=== PATIENT | female | born 1995 | race Two or more races ===

== ENCOUNTER 2024-07-09 17:33 | Emergency (ER) | payer MEDICAID, SELFPAY ==
[2024-07-09 17:34] VITALS: BMI 21.2
[2024-07-09 17:56] VITALS: BP 124/76; PULSE 78; RESP 18; TEMP 36.9; O2SAT 100
--- NOTE | 2024-07-09 18:06 | XR_ITS ---
Examination: Complete OB ultrasound, less than 14 weeks, transabdominal Date and time of exam: July 09, 2024 1834 hrs. Indications: Onset of pelvic pain and vaginal bleeding beginning today Technique: Obstetrical ultrasound images less than 14 weeks performed via transabdominal imaging Findings: A normal shaped single intrauterine gestation is present in the uterus. pole 0.9 cm corresponds to 6 week 6 day gestational age Cardiac motion 138 BPM Ultrasonographic survey of visible and placental structures unremarkable. Amniotic fluid volume appears appropriate for this estimated gestational age. Right ovary 2.7 x 1.0 x 1.6 cm arterial flow Left ovary obscured by bowel gas Impression: Viable intrauterine gestation 6 weeks 6 days No subchorionic hemorrhage.
--- NOTE | 2024-07-09 18:06 | EDNOTE_ITS ---
<Statement entered by Juliet Martins MD - 07/19/24 11:49> As co-signing physician, I was present and available for consult prn. I concur with the plan and care as documented by the midlevel provider. ED Female Urogenital RME/HPI General Chief complaint: Urogenital-Female Stated complaint: VAG BLEEDING/ABD PAIN AND + PREG Time Seen by Provider: 07/09/24 18:02 Source: patient Arrival date/time: 07/09/24 17:33 29-year-old female 4 para 3 approximately 7 weeks presents emergency department complaining of vaginal bleeding that started this morning. Patient denies any fever, chills, n/v, or any other associated symptoms. Mode of arrival: ambulatory Limitations: no limitations Related Data Allergies Allergy/AdvReac Type Severity Reaction Status Date / Time No Known Allergies Allergy Verified 07/09/24 17:37 Review of Systems Review of Systems Systems Reviewed: All systems reviewed, normal except as documented Constitutional Constitutional: Reports system reviewed and no additional complaints, except as documented, Denies body ache(s), Denies chills and Denies fever(s) Eyes Eyes: Reports system reviewed and no additional complaints, except as documented and Denies change in vision ENT Ears, Nose, Mouth, and Throat: Reports system reviewed and no additional complaints, except as documented, Denies disequilibrium, Denies dizziness, Denies sore throat and Denies vertigo Cardiovascular Cardiovascular: Reports system reviewed and no additional complaints, except as documented, Denies chest pain and Denies dyspnea Respiratory Respiratory: Reports system reviewed and no additional complaints, except as documented, Denies chest congestion, Denies cough and Denies dyspnea Gastrointestinal Gastrointestinal: Reports system reviewed and no additional complaints, except as documented, Denies abdominal pain, Denies nausea and Denies vomiting Genitourinary Genitourinary: Reports abnormal vaginal bleeding Musculoskeletal Musculoskeletal: Reports system reviewed and no additional complaints, except as documented, Denies abnormal gait and Denies arthralgias Integumentary/Breasts Skin/Breast: Reports system reviewed and no additional complaints, except as documented, Denies erythema, Denies rash and Denies wounds Neurologic Neurologic: Reports system reviewed and no additional complaints, except as documented, Denies abnormal gait, Denies disequilibrium, Denies dizziness and Denies vertigo Past Medical History Past Medical History CARDIAC: Negative Congestive Heart Failure RESPIRATORY: Negative Chronic Obstructive Pulmonary Disease (COPD) GENITOURINARY: Negative Renal Disease ENDOCRINE: Negative Diabetes Mellitus Type 1 or Diabetes Mellitus Type 2 Social History SMOKING STATUS: Never smoker ED Exam General Limitations: Present no limitations General appearance: Present alert and in no apparent distress Head Head exam: Present atraumatic Eye Eye exam: Present normal appearance, PERRL and EOMI ENT ENT exam: Present normal exam, normal oropharynx and mucous membranes moist Neck Neck exam: Present normal inspection, full ROM and trachea midline Chest Chest inspection: Present normal inspection and symmetric chest wall rise Respiratory Respiratory exam: Present normal lung sounds bilaterally Cardiovascular Cardiovascular exam: Present regular rate, normal rhythm and normal heart sounds Abdominal Exam Abdominal exam: Present soft and normal bowel sounds Extremities Exam Extremities exam: Present normal inspection and full ROM Back Exam Back exam: Present normal inspection and full ROM Neurological Exam Neurological exam: Present alert, oriented X3 and CN II-XII intact Psychiatric Psychiatric exam: Present normal affect and normal mood Skin Skin exam: Present warm, dry, intact and normal color Course Quality Measures none Orders Category Date Time Status Administer Rhogam X1 Care 07/09/24 20:40 Completed US OB <= 14 weeks fetus Stat Exams 07/09/24 18:06 Completed Antibody Identification Stat Lab 07/09/24 18:15 Completed Beta HCG,Quantitative Stat Lab 07/09/24 18:15 Completed CBC Stat Lab 07/09/24 18:15 Completed CMP [Comprehensive Metabolic Panel] Stat Lab 07/09/24 18:15 Completed RHOGAM [Rho(D) Immune Globulin] Stat Lab 07/09/24 18:15 Completed Type and Screen Stat Lab 07/09/24 18:15 Completed Urinalysis, C/S if Indicated Stat Lab 07/09/24 18:25 Completed Vital Signs Vital signs: Vital Signs Temperature 98.5 F 07/09/24 17:56 Pulse Rate 78 07/09/24 17:56 Respiratory Rate 18 07/09/24 17:56 Blood Pressure 124/76 07/09/24 17:56 Pulse Oximetry (%) 100 07/09/24 17:56 Oxygen Delivery Method Room Air 07/09/24 17:56 100% RA WNL. Urogenital - Female MDM Narrative MDM Narrative:: 29-year-old female 4 para 3 approximately 7 weeks presents emergency department complaining of vaginal bleeding that started this morning. Patient denies any fever, chills, n/v, or any other associated symptoms. CBC stable hgb 11.2 no leukocytosis. CMP unremarkable. u/a unremarkable. Beta Hcg 115, 203. US findings viable intrauterine gestation 6 weeks and 6 days. Patient blood type A negative. Dr. Martínez consulted recommends Rhogam and f/u in hes office following day. Instructions given to patient for follow up with Dr. Martínez. Patient data External records reviewed:: None Clinical information provided by:: patient and family Social determinants that could affect healthcare access:: none Patient has the following chronic illnesses:: none How is presenting disease/condition affected by chronic disease/condition?: uneffected by Evaluation data The following diagnostics were reviewed and interpreted by me:: lab results and radiology exam(s) Lab and/or radiology exams considered but not ordered:: ordered Interpretation Summary: interpreted by me Medications / Prescriptions Medications or Prescriptions considered but not ordered:: n/a Medication administrations:: n/a Consultations Consultation(s) initiated? (list below): Yes Consultation #1 (Physician, Specialty, Details): Dr. Martínez Diagnosis Urogenital Female Differential Diagnosis: other (threatened ) Most likely diagnosis given after review of the tests above:: vaginal bleeding affecting early Admission Indicated Admission indicated?: not indicated Admission Request Was there a request for admission?: No Disposition Plan Disposition Plan: Discharge Discharge Attestation Discharge Attestation: The patient and all family members were given an opportunity to ask questions and understood the discharge instructions. Discharge instructions specifically effects, indications for sooner follow up or return to the emergency department, and the expected course of current diagnosis. Patient condition: Stable Discharge Plan Plan Patient Disposition: HOME (Self Care) Disposition Comment: Stable Prescriptions/Referrals Referrals: Evans Greene MD [Primary Care Provider] - In 1 week Slick Martínez MD [Physician] - 07/10/24 9:00 am Problem List Clinical Impression: Vaginal bleeding affecting early Patient/Caregiver Discharge Instructions Discharge Activity: activity as tolerated Education Materials: Bleeding During Early Additional Instructions: Follow-up with Dr. Martínez and his office on Wednesday. Return to emergency department for any worsening symptoms or as needed. Print Language: Ukrainian Stand Alone Forms: Rama Award Info., Patient Portal Info Letter PA/TECHNICAL SUPPORT CONSULTANT Supervising Physician PA/LUÍS Supervising Physician: Dr. Martins
[2024-07-09 18:22] LABS: Basophils # (Auto) 0.1 Thou/mm3 (0.0-0.2); Basophils % (Auto) 2 % (0-2.5); Eosinophils # (Auto) 0.2 Thou/mm3 (0.0-0.5); Eosinophils % (Auto) 3 % (0-10); Hemoglobin 11.2 g/dL (12.0-16.0); Immature Granulocytes % (Auto) 0 % (0-0); Immature Granulocytes Auto 0.01 Thou/mm3 (0.00-0.00); Lymphocytes # (Auto) 2.3 Thou/mm3 (1.0-4.8); Lymphocytes % (Auto) 45 % (10-50); Mean Corpuscular HGB Conc 32.9 g/dl (31.0-37.0); Mean Corpuscular Volume 79 fL (80-100); Monocytes # (Auto) 0.4 Thou/mm3 (0.0-0.8); Monocytes % (Auto) 8 % (0-12); Neutrophils # (Auto) 2.2 Thou/mm3 (1.8-7.7); Neutrophils % (Auto) 43 % (37-80); Nucleated Red Blood Cell % 0 /100 WBC (0); Platelet Count 222 Thou/mm3 (140-440); Red Blood Count 4.31 Miln/mm3 (4.00-5.20); White Blood Count 5.2 Thou/mm3 (3.6-11.0)
[2024-07-09 18:52] LABS: Collection Type, Urine Clean Catch; RBC,Urine 0 /hpf (0-3)
[2024-07-09 18:56] LABS: Alanine Aminotransferase 21 U/L (10-49); Albumin, Serum 4.7 gm/dL (3.5-5.0); Albumin/Globulin Ratio 1.8 (1.2-2.2); Alkaline Phosphatase 60 U/L (46-116); Anion Gap 8 (7-16); Aspartate Amino Transferase 14 U/L (0-34); BUN/Creatinine Ratio 17 Ratio (12-20); Bilirubin,Total 0.4 mg/dL (0.3-1.2); Blood Urea Nitrogen 10 mg/dL (9-23); Calcium 9.7 mg/dL (8.3-10.6); Calcium (Corrected) 9.7 mg/dL (8.5-10.1); Carbon Dioxide 25.3 mMol/L (20.0-31.0); Chloride 102 mMol/L (98-107); Creatinine (Component) 0.6 mg/dL (0.6-1.3); Estimated Creatinine Clearance 112.4 mL/min (>60); Globulin 2.6 gm/dL (2.3-3.5); Glucose 109 mg/dL (74-106); Osmolality,Calculated 270 (275-295); Potassium 3.3 mMol/L (3.4-5.1); Sodium 135 mMol/L (136-145); Total Protein 7.3 gm/dL (5.7-8.2); eGFR > 60 See Note
[2024-07-09 19:00] LABS: Bilirubin,Urine Negative (Negative); Blood,Urine Negative (Negative); Clarity,Urine Turbid (Clear/Hazy); Color,Urine Yellow (Lt Yel-Yel); Culture Indicated,Urine Not Indicated; Glucose, Urine Negative (Negative); Ketones,Urine Trace (Negative); Leukocyte Esterase,Urine Positive (Negative); Nitrite,Urine Negative (Negative); PH,Urine 5.5 (5.0-7.0); Protein,Urine Trace (Neg - Trace); Specific Gravity,Urine 1.037 (1.001-1.035); Squamous Epithelial Cell,Urine 3 /hpf (0-5); WBC,Urine 5 /hpf (0-5)
[2024-07-09 19:45] LABS: Beta HCG,Quantitative 115203 mIU/mL (<5.0)
[2024-07-09 23:17] VITALS: BP 122/64; PULSE 79; RESP 20; TEMP 36.9; O2SAT 100
[2024-07-09 23:27] VITALS: BP 128/78; PULSE 83; RESP 20; TEMP 36.8; O2SAT 100
== END 2024-07-09 23:34 | disposition home or self-care (01) ==
PROVIDERS: Emergency Provider Emergency Medicine; PCP Family Medicine
DX: O20.9 Hemorrhage in early pregnancy, unspecified (principal); Z3A.01 Less than 8 weeks gestation of pregnancy
CPT/HCPCS: 36415; 76801; 80053; 81001; 84702; 85025; 86850; 86870; 86900; 86901; 99284; J2790

== ENCOUNTER 2024-07-10 21:55 | Emergency (ER) | payer MEDICAID, SELFPAY ==
[2024-07-10 21:55] VITALS: BMI 20.8
[2024-07-10 22:21] VITALS: BP 132/72; PULSE 80; RESP 16; TEMP 37; O2SAT 100
--- NOTE | 2024-07-10 22:37 | EDNOTE_ITS ---
ED OB Contraction Preg RMI/HPI General Chief complaint: OB/Uterine Contractions Stated complaint: 7WKS PREG VAG BLEEDING Time Seen by Provider: 07/10/24 22:13 Arrival date/time: 07/10/24 21:55 29 y.o female at 6 weeks and 6 days gestation reports with complaints of persistent bleeding. Patient's ultrasound performed yesterday indicated viable 6-week 6-day intrauterine . Patient became concerned today because she is spotting light pink blood noted today. She denies any back pain any fever ch ills nausea or vomiting, dysuria, urinary urgency, or frequency or pelvic pain. Limitations: no limitations Related Data Allergies Allergy/AdvReac Type Severity Reaction Status Date / Time No Known Allergies Allergy Verified 07/09/24 17:37 Review of Systems Constitutional Constitutional: Denies chills, Denies fever(s) and Denies headache(s) ENT Ears, Nose, Mouth, and Throat: Denies headache(s) and Denies vertigo Gastrointestinal Gastrointestinal: Denies nausea and Denies vomiting Genitourinary Genitourinary: Reports abnormal vaginal bleeding, Denies dysuria, Denies pelvic pain, Denies urinary hesitancy and Denies urinary urgency Musculoskeletal Musculoskeletal: Denies back pain and Denies myalgias Integumentary/Breasts Skin/Breast: Denies rash and Denies skin pain Neurologic Neurologic: Denies headache(s) and Denies vertigo Hematologic/Lymphatic Hematologic/Lymphatic: Denies easy bleeding and Denies easy bruising Past Medical History Social History SMOKING STATUS: Never smoker ED Exam General Limitations: Present no limitations General appearance: Present alert and in no apparent distress Abdominal Exam Abdominal exam: Present soft and normal bowel sounds Extremities Exam Extremities exam: Present normal inspection and full ROM Back Exam Back exam: Present normal inspection and full ROM Neurological Exam Neurological exam: Present alert, oriented X3 and CN II-XII intact Psychiatric Psychiatric exam: Present normal affect and normal mood Skin Skin exam: Present warm, dry, intact and normal color Course Course Course Narrative: Beta-hCG of 121,016 Quality Measures none Orders Category Date Time Status Beta HCG,Quantitative Stat Lab 07/10/24 23:03 Completed Vital Signs Vital signs: Vital Signs Temperature 98.6 F 07/10/24 22:21 Pulse Rate 80 07/10/24 22:21 Respiratory Rate 16 07/10/24 22:21 Blood Pressure 132/72 H 07/10/24 22:21 Pulse Oximetry (%) 100 07/10/24 22:21 Oxygen Delivery Method Room Air 07/10/24 22:21 OB/Uterine Contractions Patient data External records reviewed:: None Clinical information provided by:: patient and family Social determinants that could affect healthcare access:: none Patient has the following chronic illnesses:: none How is presenting disease/condition affected by chronic disease/condition?: no chronic disease Evaluation data The following diagnostics were reviewed and interpreted by me:: lab results Lab and/or radiology exams considered but not ordered:: none Interpretation Summary: Beta-hCG increasing Medications / Prescriptions Medications or Prescriptions considered but not ordered:: none Medication administrations:: none Consultations Consultation(s) initiated? (list below): No Diagnosis OB Contractions Differential Diagnosis: other (Threatened versus implantation of bleeding) Most likely diagnosis given after review of the tests above:: Vaginal bleeding during early Admission Indicated Explain why admission is indicated or not indicated:: mild condition Admission Request Was there a request for admission?: No Disposition Plan Disposition Plan: Discharge Discharge Attestation Discharge Attestation: The patient and all family members were given an opportunity to ask questions and understood the discharge instructions. Discharge instructions specifically effects, indications for sooner follow up or return to the emergency department, and the expected course of current diagnosis. Patient condition: Stable Discharge Plan Plan Patient Disposition: HOME (Self Care) Prescriptions/Referrals Referrals: Temporary Provider,ED [Physician] - In 1 week Problem List Clinical Impression: Vaginal bleeding during Patient/Caregiver Discharge Instructions Discharge Activity: activity as tolerated Education Materials: Bleeding During Early Additional Instructions: Your lab test show an increase in your numbers which is a good thing t he bleeding is probably due to implantation of bleeding you should follow-up with your [facility] [employer] in the morning. Beta HCG is 121,016. Uterine ultrasound done on 07/09/2024 indicated viable intrauterine gestation of 6 weeks and 6 days Print Language: Sami Stand Alone Forms: Rama Award Info., Patient Portal Info Letter
[2024-07-11 00:22] LABS: Beta HCG,Quantitative 121016 mIU/mL (<5.0)
[2024-07-11 00:36] VITALS: BP 122/76; PULSE 76; RESP 18; TEMP 36.7; O2SAT 99
== END 2024-07-11 00:37 | disposition home or self-care (01) ==
PROVIDERS: Physician Assistant; Emergency Provider Emergency Medicine
DX: O20.9 Hemorrhage in early pregnancy, unspecified (principal); Z3A.01 Less than 8 weeks gestation of pregnancy
CPT/HCPCS: 36415; 84702; 99283

== ENCOUNTER 2024-09-04 17:48 | Emergency (ER) | payer MEDICAID, SELFPAY ==
[2024-09-04 17:55] VITALS: BMI 19.8
[2024-09-04 18:24] VITALS: BP 118/78; PULSE 88; RESP 18; TEMP 37.3; O2SAT 99
--- NOTE | 2024-09-04 18:37 | XR_ITS ---
Examination: Complete OB ultrasound greater than 14 weeks Date and time of exam: September 12, 2024 1929 hrs. Indications: Abdominal pelvic pain onset today Findings: Viable intrauterine single fetus with single amniotic sac presentation breech Cardiac motion 152 BPM Placenta posterior fundal grade 1 Umbilical cord insertion seen Amniotic fluid adequate spine maternal left Cervix 3.0 cm Right ovary 3.1 cm arterial flow Left ovary obscured by the bowel gas Composite estimated gestational age based on BPD, head circumference, abdominal circumference, femur length is 16 weeks 0 days Estimated weight 143 g. Survey of intracranial anatomy, spinal anatomy, abdominal anatomy, four-chamber heart performed with no abnormalities identified. Impression: Viable intrauterine gestation breech presentation.
--- NOTE | 2024-09-04 18:40 | EDRME_ITS ---
Rapid Medical Screening Exam RME Arrival date/time: 09/04/24 17:48 29-year-old female approximately 19 weeks G4, presents emergency department complaining of abdominal fullness and pain with no vaginal bleeding that started earlier today. Patient reports sees Dr. Martínez [employer] and was instructed to go to the ER for just an ultrasound. Chief Complaint: Urogenital-Female Time Seen by Provider: 09/04/24 18:19 Vital signs: Vital Signs Temperature 99.2 F 09/04/24 18:24 Pulse Rate 88 09/04/24 18:24 Respiratory Rate 18 09/04/24 18:24 Blood Pressure 118/78 09/04/24 18:24 Pulse Oximetry (%) 99 09/04/24 18:24 Oxygen Delivery Method Room Air 09/04/24 18:24 Vital signs reviewed by provider: Yes
[2024-09-04 19:04] LABS: Collection Type, Urine Clean Catch
[2024-09-04 19:46] LABS: Bacteria,Urine Rare; Bilirubin,Urine Negative (Negative); Blood,Urine Negative (Negative); Clarity,Urine Clear (Clear/Hazy); Color,Urine Lt-Yellow (Lt Yel-Yel); Culture Indicated,Urine Not Indicated; Glucose, Urine Negative (Negative); Ketones,Urine Negative (Negative); Leukocyte Esterase,Urine Positive (Negative); Nitrite,Urine Negative (Negative); PH,Urine 6.5 (5.0-7.0); Protein,Urine Trace (Neg - Trace); RBC,Urine 2 /hpf (0-3); Specific Gravity,Urine 1.027 (1.001-1.035); Squamous Epithelial Cell,Urine 5 /hpf (0-5); Urobilinogen,Urine Negative mg/dL (0.0-1.0); WBC,Urine 2 /hpf (0-5)
--- NOTE | 2024-09-04 21:21 | EDNOTE_ITS ---
ED Abdominal Pain RME/HPI General Chief Complaint: Urogenital-Female Stated complaint: ABD PAIN/STOMCAH HARD SINCE 1600, 19 WKS 5 DAYS Time seen by provider: 09/04/24 18:19 Arrival date/time: 09/04/24 17:48 29-year-old female approximately 19 weeks G4, presents emergency department complaining of abdominal fullness and pain with no vaginal bleeding that started earlier today. Patient reports sees Dr. Martínez [employer] TENDER and was instructed to go to the ER for just an ultrasound. Patient denies any fever, chills, vaginal bleeding, or any other associated symptom. Source: patient Mode of arrival: ambulatory Limitations: no limitations RME / HPI RME / HPI narrative: 09/04/24 17:48 29-year-old female approximately 19 weeks G4, presents emergency department complaining of abdominal fullness and pain with no vaginal bleeding that started earlier today. Patient reports sees Dr. Martínez WE[employer] TENDER and was instructed to go to the ER for just an ultrasound. Related Data Allergies Allergy/AdvReac Type Severity Reaction Status Date / Time No Known Allergies Allergy Verified 09/04/24 17:52 Review of Systems Review of Systems Systems Reviewed: All systems reviewed, normal except as documented Constitutional Constitutional: Reports system reviewed and no additional complaints, except as documented, Denies body ache(s), Denies chills and Denies fever(s) Eyes Eyes: Reports system reviewed and no additional complaints, except as documented and Denies change in vision ENT Ears, Nose, Mouth, and Throat: Reports system reviewed and no additional complaints, except as documented, Denies disequilibrium, Denies dizziness, Denies sore throat and Denies vertigo Cardiovascular Cardiovascular: Reports system reviewed and no additional complaints, except as documented, Denies chest pain and Denies dyspnea Respiratory Respiratory: Reports system reviewed and no additional complaints, except as documented, Denies chest congestion, Denies cough and Denies dyspnea Gastrointestinal Gastrointestinal: Reports system reviewed and no additional complaints, except as documented, Reports abdominal pain, Denies nausea and Denies vomiting Musculoskeletal Musculoskeletal: Reports system reviewed and no additional complaints, except as documented, Denies abnormal gait and Denies arthralgias Integumentary/Breasts Skin/Breast: Reports system reviewed and no additional complaints, except as documented, Denies erythema, Denies rash and Denies wounds Neurologic Neurologic: Reports system reviewed and no additional complaints, except as documented, Denies abnormal gait, Denies disequilibrium, Denies dizziness and Denies vertigo Past Medical History Past Medical History CARDIAC: Negative Congestive Heart Failure RESPIRATORY: Negative Chronic Obstructive Pulmonary Disease (COPD) GENITOURINARY: Negative Renal Disease ENDOCRINE: Negative Diabetes Mellitus Type 1 or Diabetes Mellitus Type 2 Social History SMOKING STATUS: Never smoker ED Exam General Limitations: Present no limitations General appearance: Present alert and in no apparent distress Head Head exam: Present atraumatic Eye Eye exam: Present normal appearance, PERRL and EOMI ENT ENT exam: Present normal exam, normal oropharynx and mucous membranes moist Neck Neck exam: Present normal inspection, full ROM and trachea midline Chest Chest inspection: Present normal inspection and symmetric chest wall rise Respiratory Respiratory exam: Present normal lung sounds bilaterally Cardiovascular Cardiovascular exam: Present regular rate, normal rhythm and normal heart sounds Abdominal Exam Abdominal exam: Present soft and normal bowel sounds Extremities Exam Extremities exam: Present normal inspection and full ROM Back Exam Back exam: Present normal inspection and full ROM Neurological Exam Neurological exam: Present alert, oriented X3 and CN II-XII intact Psychiatric Psychiatric exam: Present normal affect and normal mood Skin Skin exam: Present warm, dry, intact and normal color Course Quality Measures none Orders Category Date Time Status US OB >= 14 weeks Fetus Stat Exams 09/04/24 18:37 Completed Urinalysis, C/S if Indicated Stat Lab 09/04/24 18:53 Completed Vital Signs Vital signs: Vital Signs Temperature 99.2 F 09/04/24 18:24 Pulse Rate 88 09/04/24 18:24 Respiratory Rate 18 09/04/24 18:24 Blood Pressure 118/78 09/04/24 18:24 Pulse Oximetry (%) 99 09/04/24 18:24 Oxygen Delivery Method Room Air 09/04/24 18:24 99% room air within normal limits Abdominal Pain MDM MDM Narrative MDM Narrative:: 29-year-old female approximately 19 weeks G4, presents emergency department complaining of abdominal fullness and pain with no vaginal bleeding that started earlier today. Patient reports sees Dr. Martínez WE[employer] TENDER and was instructed to go to the ER for just an ultrasound. Patient denies any fever, chills, vaginal bleeding, or any other associated symptom. Ultrasound impression viable intrauterine single fetus breech presentation cardiac motion 152 bpm. Urinalysis was unremarkable. Patient discharged instructed to follow-up with WELL TENDER in 2 to 3 days. Patient data External records reviewed:: [facility] previous records Clinical information provided by:: patient Social determinants that could affect healthcare access:: none Patient has the following chronic illnesses:: None How is presenting disease/condition affected by chronic disease/condition?: no chronic disease Evaluation data The following diagnostics were reviewed and interpreted by me:: lab results and radiology exam(s) Lab and/or radiology exams considered but not ordered:: Ordered Interpretation Summary: Interpreted by me Medications / Prescriptions Medications or Prescriptions considered but not ordered:: N/A Medication administrations:: N/A Consultations Consultation(s) initiated? (list below): No Diagnosis Differential diagnosis abdominal pain: abdominal pain, acute appendicitis, constipation, gastroenteritis, pancreatitis and other (Threatened ) Most likely diagnosis given after review of the tests above:: Abdominal pain during Admission Indicated Admission indicated?: not indicated Admission Request Was there a request for admission?: No Disposition Plan Disposition Plan: Discharge Discharge Attestation Discharge Attestation: The patient and all family members were given an opportunity to ask questions and understood the discharge instructions. Discharge instructions specifically effects, indications for sooner follow up or return to the emergency department, and the expected course of current diagnosis. Patient condition: Stable Discharge Plan Plan Patient Disposition: HOME (Self Care) Disposition Comment: StableStable Prescriptions/Referrals Referrals: No Primary/Family,Physician [Primary Care Provider] - In 1 week Problem List Clinical Impression: Abdominal pain during Patient/Caregiver Discharge Instructions Discharge Activity: activity as tolerated Education Materials: ED Abdominal Pain Unkn Cause Fem Additional Instructions: Pelvic rest. Drink plenty of fluids and stay hydrated. Follow-up with WELL TENDER Dr. Metzger in 2 to 3 days. Return to emergency department for any vaginal bleeding worsening symptoms or as needed. Print Language: Telugu Stand Alone Forms: Rama Award Info., Patient Portal Info Letter PRINCESS/LUÍS Supervising Physician PRINCESS/LUÍS Supervising Physician: Dr. Cruz
== END 2024-09-04 21:46 | disposition home or self-care (01) ==
DX: O26.892 Other specified pregnancy related conditions, second trimester (principal); R10.9 Unspecified abdominal pain; Z3A.19 19 weeks gestation of pregnancy
CPT/HCPCS: 76805; 81001; 99284